=== PATIENT | male | born 1975 ===

== ENCOUNTER 2018-08-11 11:54 | Emergency (ER) | payer OTHER, SELFPAY ==
[2018-08-11] VITALS (18 sets, daily range): BP systolic 122–170; BP diastolic 78–110; PULSE 79–105; RESP 11–22; TEMP 36.6; O2SAT 88–99
--- NOTE | 2018-08-11 | DI.RAD.S_ITS ---
PROCEDURE: XR SHOULDER RT MIN 2V INDICATIONS: POST REDUCTION TECHNIQUE: 2 views of the shoulder were acquired. COMPARISON: None. FINDINGS: Bones: Patient is status post successful reduction of anterior shoulder dislocation. A Hill-Sachs deformity may be present at the superior aspect of the humerus. No other fracture dislocation. Soft tissues: No suspicious soft tissue calcifications. IMPRESSION: Successful shoulder reduction with questionable Hill-Sachs deformity. Dictated by: Tg Jones M.D. on 08/11/2018 at 14:28 Approved by: Tg Jones M.D. on 08/11/2018 at 14:29
--- NOTE | 2018-08-11 12:04 | DI.RAD.S_ITS ---
PROCEDURE: XR SHOULDER RT MIN 2V INDICATIONS: ? dislocation. History of dislocations TECHNIQUE: 3 views of the shoulder were acquired. COMPARISON: None. FINDINGS: Bones: There is anterior dislocation of the humeral head. Hill-Sachs deformity may be present. No other fractures or dislocations. Soft tissues: No suspicious soft tissue calcifications. Visualized portions of the lung are unremarkable. IMPRESSION: Anterior right humeral head dislocation. Dictated by: Tg Jones M.D. on 08/11/2018 at 12:21 Approved by: Tg Jones M.D. on 08/11/2018 at 12:22
--- NOTE | 2018-08-11 12:09 | PC.NURSE ---
States was reaching and overstretched rt arm and dislocated rt shoulder. CMS intact.
[2018-08-11] MEDS: HYDROMORPHONE 1 MG INJ 0.5 MG IV (12:46)
--- NOTE | 2018-08-11 12:52 | ED.UPPEXIN ---
HPI - Extremity Injury (Upper) <THADDEUS Barclay - Last Filed: 08/11/18 21:50> General Chief Complaint: Extremity Injury, Upper Stated Complaint: Dislocated right shoulder Time Seen by Provider: 08/11/18 12:52 Source: patient Mode of arrival: ambulatory Limitations: no limitations History of Present Illness HPI narrative: 42-year-old male with history of hypertension is a nonsmoker here for complaint of ?dislocated shoulder?. Patient states that a history of having a prior dislocated shoulder to the right side. He reports that he had a repair surgery for repeated shoulder dislocation several years ago. He states that he was reaching into his car when he felt his shoulder pop out of joint. He denies any trauma to the shoulder. Increased pain with movement of the shoulder. He denies any other concerns or complaints at this time. Related Data Previous Rx's Medication Instructions Recorded metoprolol tartrate 100 mg tablet 100 mg PO QDAY #90 tab 05/21/18 omeprazole 20 mg capsule,delayed 20 mg PO BID #15 cap 08/14/18 release Allergies Allergy/AdvReac Type Severity Reaction Status Date / Time meperidine AdvReac Severe Vomiting Verified 08/11/18 12:04 Review of Systems <THADDEUS Barclay - Last Filed: 08/11/18 21:50> Constitutional Denies chills, Denies fever(s), Denies lethargy and Denies weakness Eyes Denies change in vision, Denies eye discharge, Denies irritation and Denies loss of vision ENT Ears, Nose, Mouth, and Throat: Denies change in voice, Denies neck pain and Denies sore throat Cardiovascular Denies chest pain, Denies irregular heart rhythm, Denies lightheadedness, Denies palpitations, Denies dyspnea, Denies dyspnea on exertion and Denies orthopnea Respiratory Denies cough, Denies dyspnea, Denies dyspnea on exertion and Denies wheezing Gastrointestinal Gastrointestinal: Denies abdominal pain, Denies change in bowel habits, Denies diarrhea, Denies nausea and Denies vomiting Genitourinary Denies hematuria, Denies flank pain, Denies urinary incontinence and Denies urinary urgency Musculoskeletal Denies neck pain Comments: Right shoulder discomfort Integumentary/Breasts Denies pruritus, Denies erythema, Denies rash and Denies wounds Neurologic Denies confusion, Denies loss of vision and Denies weakness Psychiatric Denies anxiety, Denies confusion, Denies depression, Denies homicidal ideation and Denies suicidal ideation Endocrine Denies palpitations Hematologic/Lymphatic Denies easy bruising Allergic/Immunologic Denies wheezing Exam <THADDEUS Barclay - Last Filed: 08/11/18 21:50> Initial Vital Signs Initial Vital Signs: Vital Signs Temperature 97.8 F 08/11/18 11:59 Pulse Rate 90 08/11/18 11:59 Respiratory Rate 14 08/11/18 11:59 Blood Pressure 137/84 08/11/18 11:59 Pulse Oximetry 99 08/11/18 11:59 Const General: cooperative and well developed Nutritional Appearance: well nourished Orientation: alert, awake, oriented x3 and not confused HENAZ Mouth: oral mucosae normal and moist mucous membranes Eyes Conjunctivae: conjunctivae normal Sclera: sclerae normal Pupils: PERRL EOM: EOM intact bilaterally Resp Effort & Inspection: normal respiratory effort, able to speak in complete sentences, no respiratory distress and no use of accessory muscles Auscultation: clear to auscultation bilaterally, no rales, no rhonchi and no wheezes Cardio Rate: regular rate Rhythm: regular rhythm Heart Sounds: no click, no gallops, no murmurs and no rubs Pulses: normal peripheral pulses Skin General: no rashes or lesions noted, No jaundice and No petechiae Neuro General: alert, oriented x3, gait normal and no focal motor deficits Speech: speech normal Extrem Other: Right shoulder with prominent acromion. No signs of trauma. Distal sensation is intact. Distal pulses are intact. Distal range of motion is intact. <Shania Paulson DO - Last Filed: 08/14/18 19:17> Narrative Exam Narrative: GEN: Obese, well appearing male, alert and oriented x 3, patient appears to be in moderate distress. HEENT: Atraumatic, pupils are equal round reactive to light, extraocular movements are intact, nares are clear, Throat is clear without any exudates, erythema, tonsillar enlargement or uvular deviation HEART: Regular rate and rhythm without murmur, clicks, rubs. LUNGS:Lungs clear to auscultation, no wheezes, rales, crackles, chest moves symmetrically ABD:bowel sounds normal, soft, non-tender, no guarding, rebound, rigidity, no masses noted, no hepatosplenomegaly MSCL: Patient is holding his right arm flexed at the elbow and adjacent to the chest. He does not wish to move it. 2+ radial pulse on the right. He has normal movement of all 5 fingers and is neurovascularly intact with no decrease in sensation. He does appear to have some deformity right in comparison to left. NEURO:CN 2-12 intact, sensation normal Initial Vital Signs Initial Vital Signs: Vital Signs Temperature 97.8 F 08/11/18 11:59 Pulse Rate 90 08/11/18 11:59 Respiratory Rate 14 08/11/18 11:59 Blood Pressure 137/84 08/11/18 11:59 Pulse Oximetry 99 08/11/18 11:59 <Shania Paulson DO - Last Filed: 08/14/18 19:17> Orthopedic Joint Reduction Joint #1: Time Out Performed: Yes Side: right Joint Reduction Location: shoulder Analgesia: procedural sedation Technique used: other (patient placed in adduction and flexed at elbow and patient shoulder reduced. ) Post-reduction neuro exam: intact Post-reduction vascular: intact Post Reduction X-Ray Obtained: Yes Post Reduction X-Ray Results: reduced (possible bankhart lesion. Updated patient and family) Splint Applied: Yes (shoulder immobilizer) Patient Tolerated Procedure: Well Procedural Sedation Indication: fracture/dislocation reduction ASA Class: II Mallampati Airway Classification: Class II Time of Last PO Intake: 07:00 Preparation: manager cardiac cath applied, pulse oximeter, capnometry used, supplemental O2 applied, suction/airway equipment at bedside and IV secured Ketamine: IV Ketamine dose (mg): 100 IV Propofol dose (mg): 50 ED Sedation Level: Moderate (Concious) Patient Tolerated Procedure: Well Complications: none Additional Comments: Patient had some muscle contraction and was given the propofal after which caused him to be more relaxed and was easily reduced afterwards. No complications otherwise. Course <THADDEUS Barclay - Last Filed: 08/11/18 21:50> Orders Ordered: Discontinued Medications Hydromorphone HCl (Dilaudid) 0.5 mg IV NOW ONE Stop: 08/11/18 12:44 Last Admin: 08/11/18 12:46 Dose: 0.5 mg Sodium Chloride (Normal Saline 0.9%) 1,000 mls @ 250 mls/hr IV BOLUS ONE Stop: 08/11/18 17:46 Last Infusion: 08/11/18 14:43 Dose: 0 mls/hr Admin: 08/11/18 13:49 Dose: 250 mls/hr Ketamine HCl (Ketalar) 100 mg IV NOW ONE Stop: 08/11/18 13:49 Last Admin: 08/11/18 13:57 Dose: 100 mg Lorazepam (Ativan) 1 mg IV NOW ONE Stop: 08/11/18 12:59 Last Admin: 08/11/18 13:06 Dose: 1 mg Propofol (Diprivan) 50 mg 0.5 mg/kg (50 mg) IV NOW ONE Stop: 08/11/18 14:56 Last Admin: 08/11/18 14:00 Dose: 50 mg Vital Signs - 8 hr 08/11/18 13:55 08/11/18 14:00 08/11/18 14:05 Pulse Rate 87 105 H 98 H Respiratory Rate 18 22 18 Blood Pressure Blood Pressure [Left Arm] 137/91 H 159/110 H 169/108 H Pulse Oximetry 98 96 99 08/11/18 14:10 08/11/18 14:15 08/11/18 14:20 Pulse Rate 91 H 90 92 H Respiratory Rate 19 17 12 Blood Pressure Blood Pressure [Left Arm] 170/102 H 148/97 H 146/92 H Pulse Oximetry 97 97 97 08/11/18 14:25 08/11/18 14:30 08/11/18 14:45 Pulse Rate 88 84 79 Respiratory Rate 17 17 15 Blood Pressure Blood Pressure [Left Arm] 142/93 H 139/93 H 136/88 Pulse Oximetry 96 96 88 L 08/11/18 15:00 08/11/18 15:15 08/11/18 15:30 Pulse Rate 82 91 H 89 Respiratory Rate 11 L 12 12 Blood Pressure Blood Pressure [Left Arm] 136/88 143/87 H 122/78 Pulse Oximetry 90 L 98 98 08/11/18 15:45 08/11/18 16:12 Pulse Rate 90 90 Respiratory Rate 14 15 Blood Pressure 141/82 H Blood Pressure [Left Arm] 137/87 Pulse Oximetry 97 <Shania Paulson DO - Last Filed: 08/14/18 19:17> Orders Ordered: Discontinued Medications Hydromorphone HCl (Dilaudid) 0.5 mg IV NOW ONE Stop: 08/11/18 12:44 Last Admin: 08/11/18 12:46 Dose: 0.5 mg Sodium Chloride (Normal Saline 0.9%) 1,000 mls @ 250 mls/hr IV BOLUS ONE Stop: 08/11/18 17:46 Last Infusion: 08/11/18 14:43 Dose: 0 mls/hr Admin: 08/11/18 13:49 Dose: 250 mls/hr Ketamine HCl (Ketalar) 100 mg IV NOW ONE Stop: 08/11/18 13:49 Last Admin: 08/11/18 13:57 Dose: 100 mg Lorazepam (Ativan) 1 mg IV NOW ONE Stop: 08/11/18 12:59 Last Admin: 08/11/18 13:06 Dose: 1 mg Propofol (Diprivan) 50 mg 0.5 mg/kg (50 mg) IV NOW ONE Stop: 08/11/18 14:56 Last Admin: 08/11/18 14:00 Dose: 50 mg Vital Signs - 8 hr 08/11/18 13:55 08/11/18 14:00 08/11/18 14:05 Pulse Rate 87 105 H 98 H Respiratory Rate 18 22 18 Blood Pressure Blood Pressure [Left Arm] 137/91 H 159/110 H 169/108 H Pulse Oximetry 98 96 99 08/11/18 14:10 08/11/18 14:15 08/11/18 14:20 Pulse Rate 91 H 90 92 H Respiratory Rate 19 17 12 Blood Pressure Blood Pressure [Left Arm] 170/102 H 148/97 H 146/92 H Pulse Oximetry 97 97 97 08/11/18 14:25 08/11/18 14:30 08/11/18 14:45 Pulse Rate 88 84 79 Respiratory Rate 17 17 15 Blood Pressure Blood Pressure [Left Arm] 142/93 H 139/93 H 136/88 Pulse Oximetry 96 96 88 L 08/11/18 15:00 08/11/18 15:15 08/11/18 15:30 Pulse Rate 82 91 H 89 Respiratory Rate 11 L 12 12 Blood Pressure Blood Pressure [Left Arm] 136/88 143/87 H 122/78 Pulse Oximetry 90 L 98 98 08/11/18 15:45 08/11/18 16:12 Pulse Rate 90 90 Respiratory Rate 14 15 Blood Pressure 141/82 H Blood Pressure [Left Arm] 137/87 Pulse Oximetry 97 MDM - Extremity Injury (Upper) <THADDEUS Barclay - Last Filed: 08/11/18 21:50> Imaging Data Right shoulder : Radiologist's impression: [address] [address] XRay Report Signed Patient: Kodi Cummings MR#: [id number] : 1975 Acct:[id number] Age/Sex: 42 / M Date of Service: 08/11/18 Loc: ED Accession Number: [id number] Procedure: XR shoulder RT min 2V Ordering Provider: Shania Paulson D.O. PROCEDURE: XR SHOULDER RT MIN 2V INDICATIONS: ? dislocation. History of dislocations TECHNIQUE: 3 views of the shoulder were acquired. COMPARISON: None. FINDINGS: Bones: There is anterior dislocation of the humeral head. Hill-Sachs deformity may be present. No other fractures or dislocations. Soft tissues: No suspicious soft tissue calcifications. Visualized portions of the lung are unremarkable. IMPRESSION: Anterior right humeral head dislocation. Dictated by: Tg Jones M.D. on 08/11/2018 at 12:21 Approved by: Tg Jones M.D. on 08/11/2018 at 12:22 Right shoulder post reduction : Radiologist's impression: [address] [address] XRay Report Signed Patient: Kodi Cummings MR#: [id number] : 1975 Acct:[id number] Age/Sex: 42 / M Date of Service: 08/11/18 Loc: ED Accession Number: [id number] Procedure: XR shoulder RT min 2V Ordering Provider: Ish Walsh PROCEDURE: XR SHOULDER RT MIN 2V INDICATIONS: POST REDUCTION TECHNIQUE: 2 views of the shoulder were acquired. COMPARISON: None. FINDINGS: Bones: Patient is status post successful reduction of anterior shoulder dislocation. A Hill-Sachs deformity may be present at the superior aspect of the humerus. No other fracture dislocation. Soft tissues: No suspicious soft tissue calcifications. IMPRESSION: Successful shoulder reduction with questionable Hill-Sachs deformity. Dictated by: Tg Jones M.D. on 08/11/2018 at 14:28 Approved by: Tg Jones M.D. on 08/11/2018 at 14:29 [facility] Narrative Medical decision making narrative: X-ray the right shoulder shows shoulder dislocation. Patient was provided conscious sedation by Dr. Paulson. With mild internal rotation and shoulder relocated. Repeat films show successful reduction. No fractures. Hill-Sachs deformity is seen on a post reduction film. He is placed in a sling for comfort and support. He is referred to Orthopedics patient call their office tomorrow to schedule follow-up appointment. [id number] ibuprofen as needed for any discomfort. Rest area. For any worsening symptoms return to the emergency room. Patient tolerated conscious sedation well. He was alert and awake and was maintaining his airway with normal vital signs at time of discharge. <Shania Paulson, DO - Last Filed: 08/14/18 19:17> [facility] Narrative Medical decision making narrative: Patient seen in conjunction with her provider Ish lacey. Patient has a shoulder dislocation. We do not have weights which he has tolerated well in the past without sedation so discussed and will do a conscious sedation. Patient had some breakfast included a get something to drink about 7:00 a.m.. He has not anything else to eat today. He has a history of some sleep apnea but lost a very large amount of weight and no longer requires it. He also takes medication for blood pressure. Patient had surgery on his right shoulder for recurrent dislocations. He states it happened 4-6 times. His surgery was in 1995. He states it has probably been about a decade since his last dislocation. He was just reaching into the car when it occurred. Spoke with Dr. Tamayo, he reviewed patient's films initially. Will follow up with patient with Orthopedic surgery as an outpatient. Patient tolerated procedure well. Discharge Plan Departure Patient Disposition: Home Clinical Impression: Anterior dislocation of right shoulder Discharge Date/Time: 08/11/18 16:12 Interventions: ED Discharge Assessment Last Done: 08/11/18 16:12 Instructions: DI for Shoulder Dislocation Activity Restrictions/Additional Instructions: X-ray showed shoulder dislocation which was reduced here in the emergency room. Wear sling for comfort and support. Use [id number] ibuprofen as needed for any discomfort. Follow up with Orthopedics call the office tomorrow to schedule follow-up appointment this week. For any worsening symptoms return to the emergency room. Prescriptions: No Action metoprolol tartrate 100 mg tablet 100 mg PO QDAY Qty: 90 RF: 0 omeprazole 20 mg capsule,delayed release(DR/EC) 20 mg PO BID Qty: 15 RF: 0 Referrals: Yfn Lucio MD [Primary Care Provider] - Deion Tamayo MD [Physician] - Stand Alone Forms: Work Release Note <Shania Paulson DO - Last Filed: 08/14/18 19:17> Cosign ED Attending Cosignature Attestation: Patient was seen by myself in conjunction with Ish bentley patient was evaluated, procedural sedation administration and patient's shoulder was reduced by myself. This documentation has been reviewed and I agree with final assessment and plan. I spoke with Dr. Tamayo from Orthopedic surgery here reviewed films and plan for follow-up. Supervised by Shania Paulson DO
[2018-08-11] MEDS: LORazepam 2 MG/ML SYRINGE 1 MG IV (13:06)
[2018-08-11] MEDS: SODIUM CHLORIDE 0.9% 1,000 ML 250 ML IV (13:49)
[2018-08-11] MEDS: KETAMINE 500 MG/5 ML INJ 100 MG IV (13:57)
[2018-08-11] MEDS: PROPOFOL 200 MG/20 ML VIAL 50 MG IV (14:00)
--- NOTE | 2018-08-11 14:34 | PC.NURSE ---
Pt continues responding with stimulation. Mother at bedside. Understands plan for care
--- NOTE | 2018-08-11 15:18 | PC.NURSE ---
Pt with low spo2 at 88. Placed back on 3l nc and enc. to deep breathe. Awakens and does so but sats slow to rise. O2 continued
--- NOTE | 2018-08-11 15:47 | ED_ITS ---
HPI - Extremity Injury (Upper) <THADDEUS Barclay - Last Filed: 08/11/18 21:50> General Chief Complaint: Extremity Injury, Upper Stated Complaint: Dislocated right shoulder Time Seen by Provider: 08/11/18 12:52 Source: patient Mode of arrival: ambulatory Limitations: no limitations History of Present Illness HPI narrative: 42-year-old male with history of hypertension is a nonsmoker here for complaint of ?dislocated shoulder?. Patient states that a history of having a prior dislocated shoulder to the right side. He reports that he had a repair surgery for repeated shoulder dislocation several years ago. He states that he was reaching into his car when he felt his shoulder pop out of joint. He denies any trauma to the shoulder. Increased pain with movement of the shoulder. He denies any other concerns or complaints at this time. Related Data Previous Rx's Medication Instructions Recorded metoprolol tartrate 100 mg tablet 100 mg PO QDAY #90 tab 05/21/18 omeprazole 20 mg capsule,delayed 20 mg PO BID #15 cap 08/14/18 release Allergies Allergy/AdvReac Type Severity Reaction Status Date / Time meperidine AdvReac Severe Vomiting Verified 08/11/18 12:04 Review of Systems <THADDEUS Barclay - Last Filed: 08/11/18 21:50> Constitutional Denies chills, Denies fever(s), Denies lethargy and Denies weakness Eyes Denies change in vision, Denies eye discharge, Denies irritation and Denies loss of vision ENT Ears, Nose, Mouth, and Throat: Denies change in voice, Denies neck pain and Denies sore throat Cardiovascular Denies chest pain, Denies irregular heart rhythm, Denies lightheadedness, Denies palpitations, Denies dyspnea, Denies dyspnea on exertion and Denies orthopnea Respiratory Denies cough, Denies dyspnea, Denies dyspnea on exertion and Denies wheezing Gastrointestinal Gastrointestinal: Denies abdominal pain, Denies change in bowel habits, Denies diarrhea, Denies nausea and Denies vomiting Genitourinary Denies hematuria, Denies flank pain, Denies urinary incontinence and Denies urinary urgency Musculoskeletal Denies neck pain Comments: Right shoulder discomfort Integumentary/Breasts Denies pruritus, Denies erythema, Denies rash and Denies wounds Neurologic Denies confusion, Denies loss of vision and Denies weakness Psychiatric Denies anxiety, Denies confusion, Denies depression, Denies homicidal ideation and Denies suicidal ideation Endocrine Denies palpitations Hematologic/Lymphatic Denies easy bruising Allergic/Immunologic Denies wheezing Exam <THADDEUS Barclay - Last Filed: 08/11/18 21:50> Initial Vital Signs Initial Vital Signs: Vital Signs Temperature 97.8 F 08/11/18 11:59 Pulse Rate 90 08/11/18 11:59 Respiratory Rate 14 08/11/18 11:59 Blood Pressure 137/84 08/11/18 11:59 Pulse Oximetry 99 08/11/18 11:59 Const General: cooperative and well developed Nutritional Appearance: well nourished Orientation: alert, awake, oriented x3 and not confused HENND Mouth: oral mucosae normal and moist mucous membranes Eyes Conjunctivae: conjunctivae normal Sclera: sclerae normal Pupils: PERRL EOM: EOM intact bilaterally Resp Effort & Inspection: normal respiratory effort, able to speak in complete sentences, no respiratory distress and no use of accessory muscles Auscultation: clear to auscultation bilaterally, no rales, no rhonchi and no wheezes Cardio Rate: regular rate Rhythm: regular rhythm Heart Sounds: no click, no gallops, no murmurs and no rubs Pulses: normal peripheral pulses Skin General: no rashes or lesions noted, No jaundice and No petechiae Neuro General: alert, oriented x3, gait normal and no focal motor deficits Speech: speech normal Extrem Other: Right shoulder with prominent acromion. No signs of trauma. Distal sensation is intact. Distal pulses are intact. Distal range of motion is intact. <Shania Paulson DO - Last Filed: 08/14/18 19:17> Narrative Exam Narrative: GEN: Obese, well appearing male, alert and oriented x 3, patient appears to be in moderate distress. HEENT: Atraumatic, pupils are equal round reactive to light, extraocular movements are intact, nares are clear, Throat is clear without any exudates, erythema, tonsillar enlargement or uvular deviation HEART: Regular rate and rhythm without murmur, clicks, rubs. LUNGS:Lungs clear to auscultation, no wheezes, rales, crackles, chest moves symmetrically ABD:bowel sounds normal, soft, non-tender, no guarding, rebound, rigidity, no masses noted, no hepatosplenomegaly MSCL: Patient is holding his right arm flexed at the elbow and adjacent to the chest. He does not wish to move it. 2+ radial pulse on the right. He has normal movement of all 5 fingers and is neurovascularly intact with no decrease in sensation. He does appear to have some deformity right in comparison to left. NEURO:CN 2-12 intact, sensation normal Initial Vital Signs Initial Vital Signs: Vital Signs Temperature 97.8 F 08/11/18 11:59 Pulse Rate 90 08/11/18 11:59 Respiratory Rate 14 08/11/18 11:59 Blood Pressure 137/84 08/11/18 11:59 Pulse Oximetry 99 08/11/18 11:59 <Shania Paulson DO - Last Filed: 08/14/18 19:17> Orthopedic Joint Reduction Joint #1: Time Out Performed: Yes Side: right Joint Reduction Location: shoulder Analgesia: procedural sedation Technique used: other (patient placed in adduction and flexed at elbow and patient shoulder reduced. ) Post-reduction neuro exam: intact Post-reduction vascular: intact Post Reduction X-Ray Obtained: Yes Post Reduction X-Ray Results: reduced (possible bankhart lesion. Updated patient and family) Splint Applied: Yes (shoulder immobilizer) Patient Tolerated Procedure: Well Procedural Sedation Indication: fracture/dislocation reduction ASA Class: II Mallampati Airway Classification: Class II Time of Last PO Intake: 07:00 Preparation: athletic monitor applied, pulse oximeter, capnometry used, supplemental O2 applied, suction/airway equipment at bedside and IV secured Ketamine: IV Ketamine dose (mg): 100 IV Propofol dose (mg): 50 ED Sedation Level: Moderate (Concious) Patient Tolerated Procedure: Well Complications: none Additional Comments: Patient had some muscle contraction and was given the propofal after which caused him to be more relaxed and was easily reduced afterwards. No complications otherwise. Course <THADDEUS Barclay - Last Filed: 08/11/18 21:50> Orders Ordered: Discontinued Medications Hydromorphone HCl (Dilaudid) 0.5 mg IV NOW ONE Stop: 08/11/18 12:44 Last Admin: 08/11/18 12:46 Dose: 0.5 mg Sodium Chloride (Normal Saline 0.9%) 1,000 mls @ 250 mls/hr IV BOLUS ONE Stop: 08/11/18 17:46 Last Infusion: 08/11/18 14:43 Dose: 0 mls/hr Admin: 08/11/18 13:49 Dose: 250 mls/hr Ketamine HCl (Ketalar) 100 mg IV NOW ONE Stop: 08/11/18 13:49 Last Admin: 08/11/18 13:57 Dose: 100 mg Lorazepam (Ativan) 1 mg IV NOW ONE Stop: 08/11/18 12:59 Last Admin: 08/11/18 13:06 Dose: 1 mg Propofol (Diprivan) 50 mg 0.5 mg/kg (50 mg) IV NOW ONE Stop: 08/11/18 14:56 Last Admin: 08/11/18 14:00 Dose: 50 mg Vital Signs - 8 hr 08/11/18 13:55 08/11/18 14:00 08/11/18 14:05 Pulse Rate 87 105 H 98 H Respiratory Rate 18 22 18 Blood Pressure Blood Pressure [Left Arm] 137/91 H 159/110 H 169/108 H Pulse Oximetry 98 96 99 08/11/18 14:10 08/11/18 14:15 08/11/18 14:20 Pulse Rate 91 H 90 92 H Respiratory Rate 19 17 12 Blood Pressure Blood Pressure [Left Arm] 170/102 H 148/97 H 146/92 H Pulse Oximetry 97 97 97 08/11/18 14:25 08/11/18 14:30 08/11/18 14:45 Pulse Rate 88 84 79 Respiratory Rate 17 17 15 Blood Pressure Blood Pressure [Left Arm] 142/93 H 139/93 H 136/88 Pulse Oximetry 96 96 88 L 08/11/18 15:00 08/11/18 15:15 08/11/18 15:30 Pulse Rate 82 91 H 89 Respiratory Rate 11 L 12 12 Blood Pressure Blood Pressure [Left Arm] 136/88 143/87 H 122/78 Pulse Oximetry 90 L 98 98 08/11/18 15:45 08/11/18 16:12 Pulse Rate 90 90 Respiratory Rate 14 15 Blood Pressure 141/82 H Blood Pressure [Left Arm] 137/87 Pulse Oximetry 97 <Shania Paulson DO - Last Filed: 08/14/18 19:17> Orders Ordered: Discontinued Medications Hydromorphone HCl (Dilaudid) 0.5 mg IV NOW ONE Stop: 08/11/18 12:44 Last Admin: 08/11/18 12:46 Dose: 0.5 mg Sodium Chloride (Normal Saline 0.9%) 1,000 mls @ 250 mls/hr IV BOLUS ONE Stop: 08/11/18 17:46 Last Infusion: 08/11/18 14:43 Dose: 0 mls/hr Admin: 08/11/18 13:49 Dose: 250 mls/hr Ketamine HCl (Ketalar) 100 mg IV NOW ONE Stop: 08/11/18 13:49 Last Admin: 08/11/18 13:57 Dose: 100 mg Lorazepam (Ativan) 1 mg IV NOW ONE Stop: 08/11/18 12:59 Last Admin: 08/11/18 13:06 Dose: 1 mg Propofol (Diprivan) 50 mg 0.5 mg/kg (50 mg) IV NOW ONE Stop: 08/11/18 14:56 Last Admin: 08/11/18 14:00 Dose: 50 mg Vital Signs - 8 hr 08/11/18 13:55 08/11/18 14:00 08/11/18 14:05 Pulse Rate 87 105 H 98 H Respiratory Rate 18 22 18 Blood Pressure Blood Pressure [Left Arm] 137/91 H 159/110 H 169/108 H Pulse Oximetry 98 96 99 08/11/18 14:10 08/11/18 14:15 08/11/18 14:20 Pulse Rate 91 H 90 92 H Respiratory Rate 19 17 12 Blood Pressure Blood Pressure [Left Arm] 170/102 H 148/97 H 146/92 H Pulse Oximetry 97 97 97 08/11/18 14:25 08/11/18 14:30 08/11/18 14:45 Pulse Rate 88 84 79 Respiratory Rate 17 17 15 Blood Pressure Blood Pressure [Left Arm] 142/93 H 139/93 H 136/88 Pulse Oximetry 96 96 88 L 08/11/18 15:00 08/11/18 15:15 08/11/18 15:30 Pulse Rate 82 91 H 89 Respiratory Rate 11 L 12 12 Blood Pressure Blood Pressure [Left Arm] 136/88 143/87 H 122/78 Pulse Oximetry 90 L 98 98 08/11/18 15:45 08/11/18 16:12 Pulse Rate 90 90 Respiratory Rate 14 15 Blood Pressure 141/82 H Blood Pressure [Left Arm] 137/87 Pulse Oximetry 97 MDM - Extremity Injury (Upper) <THADDEUS Barclay - Last Filed: 08/11/18 21:50> Imaging Data Right shoulder : Radiologist's impression: [address] [address] XRay Report Signed Patient: Kodi Cummings MR#: [id number] : 1975 Acct:[id number] Age/Sex: 42 / M Date of Service: 08/11/18 Loc: ED Accession Number: [id number] Procedure: XR shoulder RT min 2V Ordering Provider: Shania Paulson D.O. PROCEDURE: XR SHOULDER RT MIN 2V INDICATIONS: ? dislocation. History of dislocations TECHNIQUE: 3 views of the shoulder were acquired. COMPARISON: None. FINDINGS: Bones: There is anterior dislocation of the humeral head. Hill-Sachs deformity may be present. No other fractures or dislocations. Soft tissues: No suspicious soft tissue calcifications. Visualized portions of the lung are unremarkable. IMPRESSION: Anterior right humeral head dislocation. Dictated by: Tg Jones M.D. on 08/11/2018 at 12:21 Approved by: Tg Jones M.D. on 08/11/2018 at 12:22 Right shoulder post reduction : Radiologist's impression: [address] [address] XRay Report Signed Patient: Kodi Cummings MR#: [id number] : 1975 Acct:[id number] Age/Sex: 42 / M Date of Service: 08/11/18 Loc: ED Accession Number: [id number] Procedure: XR shoulder RT min 2V Ordering Provider: Ish Walsh PROCEDURE: XR SHOULDER RT MIN 2V INDICATIONS: POST REDUCTION TECHNIQUE: 2 views of the shoulder were acquired. COMPARISON: None. FINDINGS: Bones: Patient is status post successful reduction of anterior shoulder dislocation. A Hill-Sachs deformity may be present at the superior aspect of the humerus. No other fracture dislocation. Soft tissues: No suspicious soft tissue calcifications. IMPRESSION: Successful shoulder reduction with questionable Hill-Sachs deformity. Dictated by: Tg Jones M.D. on 08/11/2018 at 14:28 Approved by: Tg Jones M.D. on 08/11/2018 at 14:29 [facility] Narrative Medical decision making narrative: X-ray the right shoulder shows shoulder dislocation. Patient was provided conscious sedation by Dr. Paulson. With mild internal rotation and shoulder relocated. Repeat films show successful reduction. No fractures. Hill-Sachs deformity is seen on a post reduction film. He is placed in a sling for comfort and support. He is referred to Orthopedics patient call their office tomorrow to schedule follow-up appointment. [id number] ibuprofen as needed for any discomfort. Rest area. For any worsening symptoms return to the emergency room. Patient tolerated conscious sedation well. He was alert and awake and was maintaining his airway with normal vital signs at time of discharge. <Shania Paulson, DO - Last Filed: 08/14/18 19:17> [facility] Narrative Medical decision making narrative: Patient seen in conjunction with her provider Ish lacey. Patient has a shoulder dislocation. We do not have weights which he has tolerated well in the past without sedation so discussed and will do a conscious sedation. Patient had some breakfast included a get something to drink about 7:00 a.m.. He has not anything else to eat today. He has a history of some sleep apnea but lost a very large amount of weight and no longer requires it. He also takes medication for blood pressure. Patient had surgery on his right shoulder for recurrent dislocations. He states it happened 4-6 times. His surgery was in 1995. He states it has probably been about a decade since his last dislocation. He was just reaching into the car when it occurred. Spoke with Dr. Tamayo, he reviewed patient's films initially. Will follow up with patient with Orthopedic surgery as an outpatient. Patient tolerated procedure well. Discharge Plan Departure Patient Disposition: Home Clinical Impression: Anterior dislocation of right shoulder Discharge Date/Time: 08/11/18 16:12 Interventions: ED Discharge Assessment Last Done: 08/11/18 16:12 Instructions: DI for Shoulder Dislocation Activity Restrictions/Additional Instructions: X-ray showed shoulder dislocation which was reduced here in the emergency room. Wear sling for comfort and support. Use [id number] ibuprofen as needed for any discomfort. Follow up with Orthopedics call the office tomorrow to schedule follow-up appointment this week. For any worsening symptoms return to the emergency room. Prescriptions: No Action metoprolol tartrate 100 mg tablet 100 mg PO QDAY Qty: 90 RF: 0 omeprazole 20 mg capsule,delayed release(DR/EC) 20 mg PO BID Qty: 15 RF: 0 Referrals: Yfn Lucio MD [Primary Care Provider] - Deion Tamayo MD [Physician] - Stand Alone Forms: Work Release Note <Shania Paulson DO - Last Filed: 08/14/18 19:17> Cosign ED Attending Cosignature Attestation: Patient was seen by myself in conjunction with Ish bentley patient was evaluated, procedural sedation administration and patient's shoulder was reduced by myself. This documentation has been reviewed and I agree with final assessment and plan. I spoke with Dr. Tamayo from Orthopedic surgery here reviewed films and plan for follow-up. Supervised by Shania Paulson DO
== END 2018-08-11 16:12 | disposition home or self-care (01) ==
PROVIDERS: Emergency Provider Nurse Practitioner Family; Family Provider Family Medicine; PCP Family Medicine
DX: M24.411 Recurrent dislocation, right shoulder (principal)
CPT/HCPCS: 23650; 73030; 94770; 96361; 96374; 96375; 99153; 99285; J1170; J2060; J2704